=== PATIENT | female | born 2000 | race Caucasian/White ===

== ENCOUNTER 2019-03-16 18:14 | Outpatient (CLI) | payer MEDICAID, OTHER ==
[~2019-03-16] VITALS: Ht 160 cm; Wt 63.2 kg
[~2019-03-16 18:14] MED LIST: PREN1TAB13 PO
[2019-03-16 19:43] VITALS: Ht 160 cm; Wt 63.2 kg
[2019-03-16 19:44] VITALS: BP 119/73; PULSE 56; RESP 18
[2019-03-16 19:46] VITALS: BP 119/73
--- NOTE | 2019-03-16 21:59 | TRIAGE ---
OB Triage Datetime Report Generated by CPN: 03/16/2019 21:59 Datetime: 03/16/2019 19:55 Vaginal Exam Membrane Status: Intact Datetime: 03/16/2019 19:50 Stage of : OB Triage Time of Arrival: 03/16/2019 18:01 EGA: 37.3 Arrived By: Ambulatory Arrived From: Home Chief Complaint: NST, BPP, EFW FOR S<D Movement: Present Contractions: Denies/Absent Rupture of Membranes: Denies Vaginal Bleeding: None Vaginal Discharge: Denies Recent Sexual Intercouse: Denies Abdominal Trauma: Not Applicable Patient Complaints: None Provider Notified: Initial Plan: ULTRASOUND bpp8/8 bertha 13.9 36.5 days 2187 grams 41.6 percentile. no previa or abrupti on Maternal Assessment Level of Consciousness: Keenly Alert, Responsive DTR's/Clonus: DTRs 2+; No Clonus Headache: Denies Blurred Vision: No Respiratory Effort: Unlabored; Regular Rhythm; Equal Expansion Breath Sounds, Left: Clear and Equal Breath Sounds, Right: Clear and Equal Nausea/Vomiting: Denies RUQ Epigastric Pain: Denies Facial Edema: None Temperature Route: Axillary Fall Risk Assessment History of Falling: (0) No Secondary Diagnosis: (0) No Ambulatory Aid: (0) Bedrest/Nurse Assist IV Therapy: (0) No Gait: (0) Normal/Bedrest/Immobile Mental Status: (0) Oriented to Own Ability Fall Score: 0 Fall Risk Score Definition: No Risk: No action required
--- NOTE | 2019-03-16 23:26 | PN ---
Triage Information Date/Time 03/16/19 Reason for visit: size small for date Weeks of Gestation 37w3d /Para Objective Vital Signs Date Temp Pulse Resp B/P (MAP) Pulse Ox O2 O2 Flow FiO2 Time Delivery Rate 03/16/19 98.3 56 18 119/73 19:46 (88) 03/16/19 Room Air 19:44 Heart Rate: 130's Heart Rate Comments CAT I tracing Contractions: None Results/Medications Imaging Results BPP 03/09 ELBA 13.9cm EFW 2187gm 41.6% Disposition: Discharge Assessment/Plan A IUP 37w3d S < D P f/u with her OB on next MICHAEL PERALES MD Mar 16, 2019 23:26
== END 2019-03-16 22:00 | disposition home or self-care (01) ==
LOC: OBT 18:14 → L-D 18:14 → OBT 22:00
PROVIDERS: ATTEND Obstetrics & Gynecology
DX: O26.843 Uterine size-date discrepancy, third trimester (principal); Z3A.37 37 weeks gestation of pregnancy
CPT/HCPCS: 76815; 76818; Z7500; G0463

== ENCOUNTER 2019-03-26 17:22 | Outpatient (CLI) | payer OTHER ==
[~2019-03-26] VITALS: Ht 160 cm; Wt 63.0 kg
[2019-03-26 18:15] VITALS: Ht 160 cm; Wt 63.0 kg
[2019-03-26 18:16] VITALS: BP 117/74; PULSE 74; RESP 20
== END 2019-03-26 20:13 | disposition home or self-care (01) ==
LOC: OBT 17:22 → L-D 17:23 → OBT 20:13
PROVIDERS: ATTEND Obstetrics & Gynecology
DX: O62.9 Abnormality of forces of labor, unspecified (principal); Z3A.38 38 weeks gestation of pregnancy
CPT/HCPCS: G0463

== ENCOUNTER 2019-04-01 04:40 | Inpatient (IN) | payer OTHER ==
[~2019-04-01] VITALS: Ht 160 cm; Wt 64.1 kg
[2019-04-01 05:17] VITALS: Ht 160 cm; Wt 64.1 kg
[2019-04-01 05:18] VITALS: BP 116/78; PULSE 71; RESP 17
[2019-04-01] MEDS ORDERED: OXYTOCIN 30 UNITS/LR 500 ML IV PRN ×2 (05:30→17:30)
[2019-04-01] MEDS ORDERED: MISOPROSTOL 200 MCG TAB PR PRN ×2 (05:30→17:30)
[2019-04-01] MEDS ORDERED: CARBOPROST 250 MCG INJ IM PRN ×2 (05:30→17:30)
[2019-04-01] MEDS ORDERED: OXYTOCIN 30 UNITS/LR 500 ML IV SCH ×3 (05:30→06:00)
[2019-04-01] MEDS ORDERED: METHYLERGONOVINE 0.2 MG INJ IM PRN ×2 (05:30→17:30)
[2019-04-01] MEDS ORDERED: LIDOCAINE 1% (MPF) 30 ML INJ INJ PRN (05:30)
[2019-04-01] MEDS ORDERED: BUTORPHANOL 2 MG INJ IV PRN (05:30)
[2019-04-01] MEDS ORDERED: AMPICILLIN 2 GM/NS (PMX) 100 ML IV ONE (05:30)
[2019-04-01] MEDS ORDERED: IBUPROFEN 600 MG TAB PO PRN (05:30)
[2019-04-01] MEDS: LACTATED RINGER'S 1,000 ML IV SCH ×3 (06:15→11:43)
[2019-04-01] MEDS: AMPICILLIN 1 GM/NS (PMX) 50 ML IV SCH ×2 (09:09→13:14)
[2019-04-01] MEDS ORDERED: FENTAnyl 2MCG/ML-ROPIV 0.2% 100 ML ONE (09:19)
[2019-04-01] MEDS ORDERED: FENTAnyl 2MCG/ML-ROPIV 0.2% 100 ML BAG EPI SCH (10:00)
[2019-04-01] MEDS ORDERED: NALOXONE (0.4 MG/ML) INJ IV PRN (10:00)
[2019-04-01] MEDS ORDERED: MINERAL OIL LIGHT 10 ML VIAL TOP ONE (13:00)
[2019-04-01 17:00] VITALS: BP 116/55; PULSE 80; RESP 18
[2019-04-01] MEDS ORDERED: DEXTROSE 5%-LR 1,000 ML IV SCH (17:16)
[2019-04-01] MEDS ORDERED: DIBUCAINE 1% 30 GM OINT TOP PRN (17:30)
[2019-04-01] MEDS ORDERED: ZOLPIDEM 5 MG TAB PO PRN (17:30)
[2019-04-01] MEDS ORDERED: BENZOCAINE 20% 56 ML SPRAY TOP PRN (17:30)
[2019-04-01] MEDS ORDERED: ONDANSETRON 4 MG INJ IV PRN (17:30)
[2019-04-01] MEDS ORDERED: LANOLIN HPA 1 PKT TOP PRN (17:30)
[2019-04-01] MEDS ORDERED: MAGNESIUM HYDROXIDE 30ML CUP PO PRN (17:30)
[2019-04-01] MEDS ORDERED: OXYCODONE/ASPIRIN (4.88/325) TAB PO PRN (17:30)
[2019-04-01] MEDS ORDERED: DIPHENHYDRAMINE 50 MG INJ IV PRN (17:30)
[2019-04-01] MEDS ORDERED: WITCH HAZEL/GLYCERIN PAD PR PRN (17:30)
[2019-04-01] MEDS ORDERED: SENNA/DOCUSATE NA (8.6MG/50MG) TAB PO PRN (17:30)
[2019-04-01] MEDS ORDERED: ACETAMINOPHEN 325 MG TAB PO PRN (17:30)
[2019-04-01] MEDS: IBUPROFEN 600 MG TAB PO SCH (17:35)
[2019-04-01] MEDS: LACTATED RINGER'S 1,000 ML IV* SCH (17:35)
[2019-04-01 18:07] VITALS: BP 118/58; PULSE 70; RESP 18
[2019-04-01 20:30] VITALS: BP 111/60; PULSE 68; RESP 17
[2019-04-02] MEDS: IBUPROFEN 600 MG TAB PO SCH ×5 (00:08→23:49)
[2019-04-02] MEDS: LACTATED RINGER'S 1,000 ML IV* SCH ×3 (01:16→17:16)
[2019-04-02 04:00] VITALS: BP 105/59; PULSE 64; RESP 18
[2019-04-02 08:00] VITALS: BP 101/64; PULSE 70; RESP 16
[2019-04-02 15:30] VITALS: BP 113/70; PULSE 77; RESP 18
[2019-04-02 21:00] VITALS: BP 113/66; PULSE 61; RESP 18
[2019-04-03] MEDS: LACTATED RINGER'S 1,000 ML IV* SCH ×2 (01:16→09:16)
[2019-04-03 04:00] VITALS: BP 97/53; PULSE 63; RESP 17
[2019-04-03] MEDS: IBUPROFEN 600 MG TAB PO SCH ×2 (05:40→12:11)
[2019-04-03 08:45] VITALS: BP 103/62; PULSE 64; RESP 16
[2019-04-03] MEDS ORDERED: DIPHTH/TET/ACEL PERTUSS (ADULT) 0.5 ML VIAL IM* ONE (09:00)
[2019-04-03] MEDS ORDERED: MEASLES,MUMPS,RUBELLA VACCINE INJ SC* ONE (09:00)
== END 2019-04-03 14:55 | disposition home or self-care (01) | DRG 807 ==
LOC: OBT 04:40 → L-D 04:40 → OBT 05:11 → L-D 05:58 → PP1 16:41
PROVIDERS: ADMIT Obstetrics & Gynecology; ATTEND Obstetrics & Gynecology
PROC: 10E0XZZ Delivery of Products of Conception, External Approach (ICD-10-PCS; principal; 2019-04-01)
PROC: 0HQ9XZZ Repair Perineum Skin, External Approach (ICD-10-PCS; principal; 2019-04-01)
DX: O80 Encounter for full-term uncomplicated delivery (principal); Z37.0 Single live birth; Z3A.39 39 weeks gestation of pregnancy
CPT/HCPCS: 62322; 85025; 85610; 85730; 86592; 86850; 86900; 86901; 87340; 90715; G0463; J0290; J2590; J3010; J7120; J7121